=== PATIENT | female | born 1965 | race Caucasian/White ===

== ENCOUNTER 2021-02-12 15:59 | Emergency (ER) | payer BC ==
--- NOTE | 2021-02-12 16:31 | EDM.PDOC ---
ED HPI GENERAL MEDICAL PROBLEM - General Chief Complaint: General Stated Complaint: COVID Time Seen by Provider: 02/12/21 16:15 Source of Information: Reports: Patient History Limitations: Reports: No Limitations - History of Present Illness INITIAL COMMENTS - FREE TEXT/NARRATIVE: Patient presents to the ED with body aches, nausea, vomiting, diarrhea, cough, loss of taste and smell and a positive covid 19 diagnosis. she states she started with minor symptoms on 02/04. Did go to work on 02/05 but then stayed home the rest of the week due to the vomiting that is now dry heaves and and multiple loose stools without black or blood. Started to take a probiotic and has been trying to keep liquids down. Not eating. did go to the clinic on 02/10 and was tested for COVID 19. found out yesterday she was positive. Today camacho day 8 of symptom onset. significant other is present and has been home with her. He is symptomatic also. Neither one is vaccinated, she is not interested in monoclonal antibodies. Smokes cigarettes and marijuana. Non drinker with history of anxiety and depression. not immunocompromised. 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 Came in today for the body aches that are not improving along with the inabiltiy to eat or drink much and feeling weak. 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, Heat Therapy, NSAIDS, Other (see below) (probiotic) - Related Data Allergies Allergy/AdvReac Type Severity Reaction Status Date / Time No Known Allergies Allergy Verified 02/12/21 16:19 Home Meds: Home Meds Benzonatate [Tessalon Perle] 100 mg PO Q8HR PRN #30 capsule 02/12/21 [Rx] Past Medical History LMP (Approximate): Menopausal Psychiatric History: Reports: Depression - Past Surgical History GI Surgical History: Reports: Appendectomy, Cholecystectomy Female Surgical History: Reports: Section, Oophorectomy Social & Family History - Tobacco Use Tobacco Use Status *Q: Current Every Day Tobacco User - Alcohol Use Alcohol Use History: No Alcohol Use in Last Twelve Months: No - Recreational Drug Use Recreational Drug Type: Reports: Marijuana/Hashish - Living Situation & Occupation Living situation: Reports: with Significant Other ED ROS GENERAL - Review of Systems Review Of Systems: See Below Constitutional: Reports: Malaise, Weakness, Fatigue, Decreased Appetite. Denies : Fever, Chills HEENT: Reports: Other (loss of taste and smell). Denies: Hearing Loss, Rhinitis, Sinus Problem, Throat Pain, Throat Swelling Respiratory: Reports: Cough. Denies: Shortness of Breath, Wheezing, Hemoptysis Cardiovascular: Denies: Chest Pain, Dyspnea on Exertion, Edema GI/Abdominal: Reports: Anorexia, Diarrhea, Decreased Appetite, Nausea, Vomiting. Denies: Abdominal Pain, Black Stool, Bloody Stool, Difficulty Swallowing, Hematemesis, Hematochezia : Denies: Dysuria, Frequency Musculoskeletal: Reports: Muscle Pain Skin: Reports: No Symptoms Neurological: Reports: Headache ED EXAM, GENERAL - Physical Exam Exam: See Below Exam Limited By: No Limitations General Appearance: Alert, WD/WN, No Apparent Distress Eye Exam: Bilateral Eye: EOMI, Normal Inspection, PERRL Ears: Normal External Exam, Normal Canal, Hearing Grossly Normal, Normal TMs Nose: Normal Inspection, Normal Mucosa, No Blood Throat/Mouth: Normal Inspection, Normal Lips, Normal Teeth, Normal Gums, Normal Oropharynx, Normal Voice, No Airway Compromise Head: Atraumatic, Normocephalic Neck: Normal Inspection, Supple, Non-Tender, Full Range of Motion. No: Lymphadenopathy (L), Lymphadenopathy (R) Respiratory/Chest: No Respiratory Distress, Lungs Clear, Normal Breath Sounds, No Accessory Muscle Use, Chest Non-Tender. No: Decreased Breath Sounds, Wheezing Cardiovascular: Normal Peripheral Pulses, Regular Rate, Rhythm, No Edema, No Murmur GI/Abdominal: Soft, Non-Tender, No Organomegaly, No Distention, No Mass, Abnormal Bowel Sounds (decreased). No: Distended Extremities: Normal Inspection, Normal Range of Motion, Non-Tender, No Pedal Edema, Normal Capillary Refill, Other (no skin tenting) Neurological: Alert, Oriented, CN II-XII Intact, Normal Cognition, No Motor/Sensory Deficits Psychiatric: Normal Affect, Normal Mood Skin Exam: Warm, Dry, Intact, Normal Color #1 Interpretation EKG Date: 02/12/21 Time: 16:57 Rhythm: NSR Rate (Beats/Min): 70 [place]: Normal P-Wave: Present QRS: Normal ST-T: Normal QT: Normal Comparison: NA - No Prior EKG Course - Vital Signs Last Recorded V/S: Last Vital Signs Temp 36.6 C 02/12/21 16:11 Pulse 85 02/12/21 16:11 Resp 16 02/12/21 16:11 BP 116/74 02/12/21 16:11 Pulse Ox 96 02/12/21 16:11 - Orders/Labs/Meds Orders: Active Orders 24 hr Category Date Time Status Peripheral IV Care [RC] . DIRECTED Care 02/12/21 16:11 Ordered CREATINE KINASE,CK [CHEM] Stat Lab 02/12/21 16:42 Ordered UA RFX JOSE ENRIQUE AND CULT IF INDIC [URIN] Stat Lab 02/12/21 16:11 Ordered Sodium Chloride 0.9% [Normal Saline] 1,000 ml Med 02/12/21 16:15 Ordered IV ASDIRECTED Sodium Chloride 0.9% [Saline Flush] Med 02/12/21 16:11 Ordered 10 ml FLUSH ASDIRECTED PRN Isolation [COMM] Routine Oth 02/12/21 16:13 Ordered Peripheral IV Insertion Adult [OM.PC] Routine Oth 02/12/21 16:11 Ordered EKG 12 Lead [EK] Stat Ther 02/12/21 16:11 Ordered Medication Orders Sodium Chloride (Normal Saline) 1,000 mls @ 1,000 mls/hr IV ASDIRECTED SERGEI Last Admin: 02/12/21 16:49 Dose: 1,000 mls/hr Documented by: ALBERTINA Sodium Chloride (Sodium Chloride 0.9% 10 Ml Syringe) 10 ml FLUSH ASDIRECTED PRN PRN Reason: Keep Vein Open Last Admin: 02/12/21 16:49 Dose: 10 ml Documented by: ALBERTINA Labs: Laboratory Tests 02/12/21 02/12/21 Range/Units 16:40 16:45 WBC 2.5 L (4.0-10.2) K/uL RBC 4.47 (3.77-5.09) M/uL Hgb 15.1 (11.7-15.5) g/dL Hct 44.0 (34.0-46.0) % MCV 98.4 H (84.0-98.0) fL MCH 33.8 H (28.2-33.3) pg MCHC 34.3 (31.7-36.0) g/dL RDW 12.0 (11.2-14.1) % Plt Count 187 (150-350) K/uL Neut % (Auto) 44.4 L (45.0-80.0) % Lymph % (Auto) 39.0 (10.0-50.0) % [place] % (Auto) 15.4 H (2.0-14.0) % Eos % (Auto) 0.8 (0.0-5.0) % Baso % (Auto) 0.4 (0.0-2.0) % Neut # (Auto) 1.09 L (1.40-7.00) K/uL Lymph # (Auto) 0.96 (0.50-3.50) K/uL [place] # (Auto) 0.38 (0.00-1.00) K/uL Eos # (Auto) 0.02 (0.00-0.50) K/uL Baso # (Auto) 0.01 (0.00-0.20) K/uL Sodium 139 (136-145) mmol/L Potassium 3.4 L (3.5-5.1) mmol/L Chloride 102 (98-107) mmol/L Carbon Dioxide 24.9 (21.0-32.0) mmol/L Anion Gap 15.5 H (7-15) meq/L BUN 24 H (7-18) mg/dL Creatinine 0.78 (0.51-1.17) mg/dL Est Cr Clr Drug Dosing TNP Estimated GFR (MDRD) > 60 mL/min Glucose 100 H (70-99) mg/dL Calcium 8.7 (8.5-10.1) mg/dL Magnesium 1.9 (1.8-2.4) mg/dL Total Bilirubin 0.4 (0.2-1.0) mg/dL AST 44 H (15-37) U/L ALT 77 (12-78) U/L Alkaline Phosphatase 124 H (46-116) IU/L Troponin I High Sens 4 (<=51) ng/L C-Reactive Protein 1.4 H (<=0.9) mg/dL Total Protein 7.1 (6.4-8.2) g/dL Albumin 3.3 L (3.4-5.0) g/dL Lipase 72 L (73-393) U/L Meds: Medications Generic Name Dose Route Start Last Admin Trade Name Freq PRN Reason Stop Dose Admin Sodium Chloride 1,000 mls @ 1,000 mls/hr 02/12/21 16:15 02/12/21 16:49 Normal Saline IV 1,000 mls/hr ASDIRECTED SERGEI Administration Sodium Chloride 10 ml 02/12/21 16:11 02/12/21 16:49 Sodium Chloride 0.9% 10 Ml Syringe FLUSH 10 ml ASDIRECTED PRN Administration Keep Vein Open Discontinued Medications Generic Name Dose Route Start Last Admin Trade Name Freq PRN Reason Stop Dose Admin Benzonatate 100 mg 02/12/21 16:31 02/12/21 16:48 Benzonatate 100 Mg Cap PO 02/12/21 16:32 100 mg ONETIME ONE Administration Benzonatate Confirm 02/12/21 16:33 02/12/21 17:20 Benzonatate 100 Mg Cap Administered 02/12/21 16:34 Not Given Dose 100 mg .ROUTE .STK-MED ONE Ketorolac Tromethamine 30 mg 02/12/21 16:26 02/12/21 16:48 Ketorolac 30 Mg/Ml Sdv IVPUSH 02/12/21 16:27 30 mg ONETIME ONE Administration Ondansetron HCl 4 mg 02/12/21 16:11 02/12/21 16:49 Ondansetron 4 Mg/2 Ml Sdv IVPUSH 02/12/21 16:12 4 mg ONETIME ONE Administration - Re-Assessments/Exams Free Text/Narrative Re-Assessment/Exam: 02/12/21 16:45 Patient presents with a 8 day history of nausea, vomiting, diarrhea, body aches and new diagnosis of covid 19. Normal respirations, not tachycardic, not in any respiratory distress. Has mild dehydration by exam, will place an IV and given normal saline 1 liter bolus, zofran 4 mg IVP, toradol 30 mg IVP and a tessalon 100 mg perrle. NO SIRS signs, will check labs, ekg. 02/12/21 17:33 patient is feeling better. Up to the bathroom. LAbs are typical for covid. no imaging warranted today. Will send home with tessalon and script, albuterol inhaler, instructions on alternating tylenol and motrin, zofran for the nausea which will help with the diarrhea.continue the probiotic Is not hypoxic, advised to return as needed. continue quarantine as per the state guidelines Departure - Departure Time of Disposition: 17:48 Disposition: Home, Self-Care 01 Clinical Impression: Nausea and vomiting, COVID-19, Dehydration - Discharge Information *PRESCRIPTION DRUG MONITORING PROGRAM REVIEWED*: Not Applicable *COPY OF PRESCRIPTION DRUG MONITORING REPORT IN PATIENT TRAVIS: Not Applicable Prescriptions: Benzonatate [Tessalon Perle] 100 mg PO Q8HR PRN #30 capsule PRN Reason: Cough Instructions: Dehydration, Adult, [id number], Nausea and Vomiting, Adult, COVID-19 Frequently Asked Questions, Rehydration, Adult, 10 Things You Can Do to Manage Your COVID-19 Symptoms at Home - [facility] (11/18/2020), COVID-19: What to Do If You Are Sick- [facility] (07/20/2020), [place] Diet Referrals: PCP,None [Primary Care Provider] - Forms: ED Department Discharge Additional Instructions: Continue your quarantine as instructed by the state. Wear a mask at all times you are not at home. start with a BRAT diet, toast, crackers, soup broth and advance slowly. Stay hydrated. Use the zofran as needed for nausea which will help the diarrhea. The tessalon perrles one every 8 hours ( you were given one in the er, two to get you through the night and a prescription for more). This will help with the cough, as will delsym ( over the counter ) cough medication. Use the albuterol inhaler to open up the lungs, ( you may cough more) every 4-6 hours as needed. Continue the probiotic. It is suggested to use regular dosing of tylenol ( 1000 mg every 6 hours) and ibuprofen 600 mg every 6 hours in an alternating fashion to help with body aches. Return to the Ed for increased shortness of breath or dehydration Sepsis Event Note (ED) - Evaluation Sepsis Screening Result: No Definite Risk - Focused Exam Vital Signs: Vital Signs Temp Pulse Resp BP Pulse Ox 02/12/21 16:11 36.6 C 85 16 116/74 96 - My Orders Last 24 Hours: My Active Orders 02/12/21 16:11 Peripheral IV Care [RC] . DIRECTED UA RFX JOSE ENRIQUE AND CULT IF INDIC [URIN] Stat Sodium Chloride 0.9% [Saline Flush] 10 ml FLUSH ASDIRECTED PRN Peripheral IV Insertion Adult [OM.PC] Routine EKG 12 Lead [EK] Stat 02/12/21 16:13 Isolation [COMM] Routine 02/12/21 16:15 Sodium Chloride 0.9% [Normal Saline] 1,000 ml IV ASDIRECTED 02/12/21 16:42 CREATINE KINASE,CK [CHEM] Stat - Assessment/Plan Last 24 Hours: My Active Orders 02/12/21 16:11 Peripheral IV Care [RC] . DIRECTED UA RFX JOSE ENRIQUE AND CULT IF INDIC [URIN] Stat Sodium Chloride 0.9% [Saline Flush] 10 ml FLUSH ASDIRECTED PRN Peripheral IV Insertion Adult [OM.PC] Routine EKG 12 Lead [EK] Stat 02/12/21 16:13 Isolation [COMM] Routine 02/12/21 16:15 Sodium Chloride 0.9% [Normal Saline] 1,000 ml IV ASDIRECTED 02/12/21 16:42 CREATINE KINASE,CK [CHEM] Stat
[2021-02-12] MEDS: Ketorolac 30 MG/ML SDV IVPUSH ONE (16:48)
[2021-02-12] MEDS: Benzonatate 100 MG Cap PO ONE (16:48)
[2021-02-12] MEDS: Sodium Chloride 0.9% 10 ML Syringe FLUSH PRN (16:49)
[2021-02-12] MEDS: Ondansetron 4 MG/2 ML SDV IVPUSH ONE (16:49)
[2021-02-12] MEDS: Sodium Chloride 0.9% 1,000 ML IV SCH (16:49)
[2021-02-12] MEDS: Benzonatate 100 MG Cap ONE (17:20)
[2021-02-12 17:23] LABS: CHLORIDE,CL 102 mmol/L (98-107); SODIUM,NA 139 mmol/L (136-145)
[2021-02-12 17:24] LABS: ANION GAP 15.5 meq/L (7-15)
[2021-02-12] MEDS ORDERED: Benzonatate 100 MG Cap PO SCH (18:00)
== END 2021-02-12 18:00 | disposition home or self-care (01) ==
LOC: LL.ED 15:59
DX: R11.2 Nausea with vomiting, unspecified (principal); U07.1 COVID-19; E86.0 Dehydration; F17.210 Nicotine dependence, cigarettes, uncomplicated
CPT/HCPCS: 36415; 80053; 81001; 82550; 83690; 83735; 84484; 85025; 86140; 93005; 93010; 96374; 96375; 99284; A9270; J1885; J2405; J7030

== ENCOUNTER 2022-03-27 20:04 | Emergency (ER) | payer BC ==
[2022-03-27] MEDS ORDERED: Acetaminophen 325 MG Tab PO ONE (20:41)
[2022-03-27] MEDS ORDERED: Ketorolac 30 MG/ML SDV IM ONE (20:41)
[2022-03-27] MEDS ORDERED: Ondansetron 4 MG Tab.DIS PO ONE (20:41)
[2022-03-27] MEDS ORDERED: Acetaminophen/oxyCODONE 325-5 MG Tab PO ONE (20:41)
== END 2022-03-27 21:25 | disposition home or self-care (01) ==
LOC: LL.ED 20:04
DX: S99.912A Unspecified injury of left ankle, initial encounter (principal); S50.02XA Contusion of left elbow, initial encounter; E66.9 Obesity, unspecified; W00.0XXA Fall on same level due to ice and snow, initial encounter
CPT/HCPCS: 73610-LT; 96372; 99283; A9270-GY; J1885

== ENCOUNTER 2022-10-15 14:42 | Emergency (ER) | payer BC ==
[2022-10-15] MEDS ORDERED: Sodium Chloride 0.9% 1,000 ML IV ONE (15:02)
[2022-10-15] MEDS ORDERED: Ondansetron 4 MG/2 ML SDV IVPUSH PRN (15:02)
[2022-10-15] MEDS ORDERED: fentaNYL 50 MCG/ML SDV IVPUSH PRN ×2 (15:02→16:03)
[2022-10-15 15:14] LABS: APPEARANCE,URINE SLIGHTLY CLOUDY; BILIRUBIN,URINE NEGATIVE (NEGATIVE); COLOR,URINE YELLOW; GLUCOSE,URINE NEGATIVE (NEGATIVE); KETONES,URINE NEGATIVE (NEGATIVE); LEUKOCYTE ESTERASE,URINE NEGATIVE (NEGATIVE); NITRITE,URINE NEGATIVE (NEGATIVE); OCCULT BLOOD,URINE LARGE (NEGATIVE); PROTEIN,URINE NEGATIVE (NEGATIVE); UROBILINOGEN,URINE 0.2 E.U./dL (0.2-1.0)
[2022-10-15 15:14] LABS: BASOPHILS ABSOLUTE AUTO 0.05 K/uL (0.00-0.20); BASOPHILS PERCENT AUTO 0.6 % (0.0-2.0); EOSINOPHILS ABSOLUTE AUTO 0.14 K/uL (0.00-0.50); EOSINOPHILS PERCENT AUTO 1.7 % (0.0-5.0); HEMATOCRIT 42.3 % (34.0-46.0); HEMOGLOBIN 13.9 g/dL (11.7-15.5); LYMPHOCYTES ABSOLUTE AUTO 2.23 K/uL (0.50-3.50); LYMPHOCYTES PERCENT AUTO 27.7 % (10.0-50.0); MEAN CORPUSCULAR HEMOGLOBIN 33.7 pg (28.2-33.3); MEAN CORPUSCULAR HGB CONC 32.9 g/dL (31.7-36.0); MEAN CORPUSCULAR VOLUME 102.4 fL (84.0-98.0); MONOCYTES ABSOLUTE AUTO 0.67 K/uL (0.00-1.00); MONOCYTES PERCENT AUTO 8.3 % (2.0-14.0); NEUTROPHILS ABSOLUTE AUTO 4.97 K/uL (1.40-7.00); NEUTROPHILS PERCENT AUTO 61.7 % (45.0-80.0); PLATELET COUNT,PLT 279 K/uL (150-350); RED BLOOD CELL COUNT 4.13 M/uL (3.77-5.09); RED CELL DISTRIBUTION WIDTH 12.3 % (11.2-14.1); WHITE BLOOD CELL COUNT,WBC 8.1 K/uL (4.0-10.2)
[2022-10-15] MEDS: Sodium Chloride 0.9% 10 ML Syringe FLUSH PRN ×2 (15:15→16:25)
[2022-10-15 15:16] LABS: BACTERIA,URINE RARE /HPF (NONE TO FEW); EPITHELIAL CELLS,URINE FEW /LPF; RBC,URINE 20-30 /HPF; WBC,URINE 0-5 /HPF
[2022-10-15 15:29] LABS: ALBUMIN 3.8 g/dL (3.4-5.0); ANION GAP 11.3 meq/L (7-15); BILIRUBIN TOTAL 0.3 mg/dL (0.2-1.0); CARBON DIOXIDE,CO2 25.7 mmol/L (21.0-32.0); CREATININE 1.01 mg/dL (0.51-1.17); EST CRCL DRUG DOSING (CG) 51.45 mL/min; POTASSIUM,K 4.1 mmol/L (3.5-5.1); PROTEIN TOTAL,TP 7.4 g/dL (6.4-8.2)
[2022-10-15] MEDS ORDERED: Iopamidol 612 MG/ML 100 ML Bottle ONE (15:46)
[2022-10-15] MEDS ORDERED: Take Home: oxyCODONE HCl 5 MG Tab, 5 Tab Pack PO ONE (16:54)
[2022-10-15] MEDS ORDERED: Take Home: Ondansetron 4 MG Tab.DIS, 5 Tab Pack PO ONE (16:54)
[2022-10-15] MEDS ORDERED: Tamsulosin 0.4 MG Cap.ER PO ONE (18:00)
== END 2022-10-15 18:13 | disposition home or self-care (01) ==
LOC: LL.ED 14:42
DX: N13.2 Hydronephrosis with renal and ureteral calculous obstruction (principal); E66.9 Obesity, unspecified; Z68.35 Body mass index [BMI] 35.0-35.9, adult; Z88.5 Allergy status to narcotic agent; Z90.49 Acquired absence of other specified parts of digestive tract
CPT/HCPCS: 74177; 80053; 81001; 83605; 83690; 85025; 96361; 96374; 96375; 96376; 99284; A9270; J2405; J3010; J7030; Q0162; Q9967; J3490

== ENCOUNTER 2024-04-11 13:13 | Emergency (ER) | payer BC ==
[2024-04-11] MEDS: Ondansetron 4 MG/2 ML SDV IVPUSH ONE ×2 (13:18→16:06)
[2024-04-11] MEDS: Ketorolac 15 MG/ML SDV IVPUSH ONE (13:18)
[2024-04-11] MEDS: Sodium Chloride 0.9% 1,000 ML IV ONE (13:20)
[2024-04-11 13:33] LABS: BASOPHILS ABSOLUTE AUTO 0.06 K/uL (0.00-0.20); BASOPHILS PERCENT AUTO 0.7 % (0.0-2.0); EOSINOPHILS ABSOLUTE AUTO 0.09 K/uL (0.00-0.50); EOSINOPHILS PERCENT AUTO 1.1 % (0.0-5.0); HEMATOCRIT 45.4 % (34.0-46.0); HEMOGLOBIN 14.9 g/dL (11.7-15.5); IMMATURE GRAN ABSOLUTE AUTO 0.02 10^3/uL (0.00-0.50); IMMATURE GRAN PERCENT AUTO 0.2 % (0.0-5.0); LYMPHOCYTES ABSOLUTE AUTO 2.31 K/uL (0.50-3.50); MEAN CORPUSCULAR HEMOGLOBIN 32.9 pg (28.2-33.3); MEAN CORPUSCULAR HGB CONC 32.8 g/dL (31.7-36.0); MEAN CORPUSCULAR VOLUME 100.2 fL (84.0-98.0); MONOCYTES ABSOLUTE AUTO 0.49 K/uL (0.00-1.00); MONOCYTES PERCENT AUTO 5.7 % (2.0-14.0); NEUTROPHILS ABSOLUTE AUTO 5.57 K/uL (1.40-7.00); NEUTROPHILS PERCENT AUTO 65.3 % (45.0-80.0); PLATELET COUNT,PLT 258 K/uL (150-350); RED BLOOD CELL COUNT 4.53 M/uL (3.77-5.09); RED CELL DISTRIBUTION WIDTH 12.1 % (11.2-14.1); WHITE BLOOD CELL COUNT,WBC 8.5 K/uL (4.0-10.2)
[2024-04-11 13:55] LABS: ANION GAP 12.2 meq/L (7-15); BILIRUBIN TOTAL 0.5 mg/dL (0.2-1.0); CALCIUM 11.1 mg/dL (8.5-10.1); CARBON DIOXIDE,CO2 24.8 mmol/L (21.0-32.0); CREATININE 0.87 mg/dL (0.51-1.17); EST CRCL DRUG DOSING (CG) 58.31 mL/min; MAGNESIUM 2.5 mg/dL (1.8-2.4); POTASSIUM,K 3.9 mmol/L (3.5-5.1); PROTEIN TOTAL,TP 7.9 g/dL (6.4-8.2)
[2024-04-11 13:59] LABS: APPEARANCE,URINE CLEAR; BILIRUBIN,URINE NEGATIVE (NEGATIVE); COLOR,URINE DARK YELLOW; GLUCOSE,URINE NEGATIVE (NEGATIVE); KETONES,URINE NEGATIVE (NEGATIVE); LEUKOCYTE ESTERASE,URINE NEGATIVE (NEGATIVE); NITRITE,URINE NEGATIVE (NEGATIVE); OCCULT BLOOD,URINE NEGATIVE (NEGATIVE); PROTEIN,URINE NEGATIVE (NEGATIVE); UROBILINOGEN,URINE 0.2 E.U./dL (0.2-1.0)
[2024-04-11] MEDS ORDERED: Naloxone 0.4 MG/ML SDV IVPUSH PRN (14:03)
[2024-04-11] MEDS: HYDROmorphone 0.5 MG/0.5 ML Syringe IVPUSH ONE (14:08)
[2024-04-11] MEDS: Sodium Chloride 0.9% 10 ML Syringe FLUSH PRN (14:14)
[2024-04-11] MEDS: Ondansetron 4 MG/2 ML SDV ONE ×2 (14:15→16:07)
[2024-04-11 14:46] LABS: AMPHETAMINES SCREEN, URINE NEGATIVE (NEGATIVE); BARBITURATE SCREEN,URINE NEGATIVE (NEGATIVE); BENZODIAZEPINES SCREEN,URINE NEGATIVE (NEGATIVE); BUPRENORPHINE SCREEN,URINE NEGATIVE (NEGATIVE); COCAINE METABOLITES,URINE NEGATIVE (NEGATIVE); EDDP,URINE SCREEN NEGATIVE (NEGATIVE); METHAMPHETAMINES SCREEN, URINE NEGATIVE (NEGATIVE); OXYCODONE SCREEN,URINE NEGATIVE (NEGATIVE); TCA SCREEN,URINE NEGATIVE (NEGATIVE); THC SCREEN,URINE 50 NG/ML NEGATIVE (NEGATIVE)
[2024-04-11] MEDS: Promethazine 25 MG/ML SDV IM ONE (15:21)
[2024-04-11] MEDS: Promethazine 25 MG/ML SDV ONE (15:22)
[2024-04-11] MEDS: fentaNYL 50 MCG/ML SDV IVPUSH ONE (15:32)
[2024-04-11] MEDS ORDERED: Prochlorperazine 10 MG/2 ML SDV IVPUSH PRN (16:05)
[2024-04-11 16:13] LABS: AMYLASE 143 U/L (25-115); LIPASE 28 U/L (16-77)
[2024-04-11] MEDS: Iopamidol 612 MG/ML 100 ML Bottle IVPUSH ONE (16:30)
[2024-04-11] MEDS ORDERED: Psyllium Husk Powder Sugar Free 5.85 GM Packet PO ONE (19:07)
[2024-04-11] MEDS: Polyethylene Glycol 3350 Powder 17 GM Packet PO ONE (19:54)
[2024-04-11] MEDS: Lactulose Soln 10 GM/15 ML 30 ML UD Cup PO ONE (19:54)
== END 2024-04-11 19:20 | disposition left against medical advice (07) ==
LOC: LL.ED 13:13 → LL.MS 18:58 → UNDOADMIN 18:58
DX: R10.84 Generalized abdominal pain (principal); R11.2 Nausea with vomiting, unspecified; E66.9 Obesity, unspecified; Z90.49 Acquired absence of other specified parts of digestive tract; Z88.5 Allergy status to narcotic agent; Z68.33 Body mass index [BMI] 33.0-33.9, adult
CPT/HCPCS: 36415; 74022; 74177; 80053; 80305-QW; 80307; 81003; 82150; 83605; 83690; 83735; 84484; 85025; 87428-QW; 87651-QW; 93005; 94761; 96361; 96372; 96374; 96375; 96376; 99284-25; J1171; J1885; J2405; J2550; J3010; J7030; Q9967